=== PATIENT | female | born 1960 | race Caucasian/White ===

== ENCOUNTER 2021-03-16 13:59 | Outpatient (REF) | payer OTHER, SELFPAY ==
--- NOTE | ~2021-03-16 | XR_ITS ---
EXAMINATION: XR CERVICAL SPINE CLINICAL INFORMATION: Postlaminectomy syndrome. COMPARISON: None TECHNIQUE: Three views of the cervical spine were obtained. FINDINGS: There is a vertebral body fusion C4, C5 vertebrae and ventral plate and screws for C6 and C7. There is loss of C4-C5 disc height. No visible acute fracture or dislocation seen. The prevertebral soft tissues are normal. XR/XR cervical spine 2V IMPRESSION: Bony fusion C4, C5 vertebra and ventral plate and screws for C6 and C7 fusion. Degenerative disc changes C3 3-4 disc level.
== END 2021-03-16 14:00 | disposition home or self-care (01) ==
LOC: HO.XRAY 13:59
PROVIDERS: PCP Internal Medicine; Visit Provider Internal Medicine
DX: M96.1 Postlaminectomy syndrome, not elsewhere classified (principal); M47.812 Spondylosis without myelopathy or radiculopathy, cervical region; Z86.718 Personal history of other venous thrombosis and embolism; Z79.01 Long term (current) use of anticoagulants
CPT/HCPCS: 72040; 99202